=== PATIENT | female | born 1970 | race Two or more races ===

== ENCOUNTER 2025-08-09 14:12 | Emergency (ER) | payer MEDICAID, SELFPAY ==
--- NOTE | 2025-08-09 | XR_ITS ---
Examination: MRI lumbar spine without contrast Date and time of exam: August 09, 2025, 1858 hours INDICATIONS: Patient fell today injury to the lower back, compression fracture L1 on CT examination today Technique: Multiple MRI axial and sagittal sections lumbar spine. Sagittal T2-weighted images, TR 3500, TE 118 T1 weighted transverse sections, TR 688 T8.5, T2-weighted sagittal sections T1 weighted sagittal sections TR 621, TE 30 T2 axial sections, TR 4, 190, TE 84. Findings: Acute compression fracture L1 vertebral body, depression inferior endplate, burst type fracture Retropulsion of the posterior inferior margin of this vertebral body 6 mm however no impingement upon the conus medullaris Diffuse lumbar disc desiccation No spondylolisthesis L5-S1 5 mm central lumbar disc bulge which extends to the right intervertebral foramen with mild right L5 ganglionic compression, sagittal image 4 L4-L5 2 mm central lumbar disc bulge L3-L4 no disc protrusion L2-L3 no disc protrusion L1-L2 no disc protrusion IMPRESSION: Acute compression fracture L1 vertebral body, depression superior endplate, reduction in height 50% Retropulsion of the posterior inferior margin of this vertebral body 6 mm no impingement upon the conus medullaris L5-S1 6 mm central lumbar disc bulge extending to the right intervertebral foramen with mild right L5 ganglionic compression
[2025-08-09 14:20] VITALS: BP 164/97; PULSE 80; RESP 21; TEMP 36.4; O2SAT 95
--- NOTE | 2025-08-09 14:22 | XR_ITS ---
EXAMINATION: Right femur 2 views TECHNIQUE: AP lateral right femur 2 views Date and time: August 09, 2025, 1449 hours INDICATIONS: Patient fell in the shower today with injury to the femur, femur pain. FINDINGS: No hip or femoral shaft fracture noted No hip dislocation IMPRESSION: No acute fracture
--- NOTE | 2025-08-09 14:22 | XR_ITS ---
Examination: CT lumbar spine, without contrast. 2-D sagittal reconstructions. 2-D coronal reconstructions. 3-D reconstructions. Date and time of exam: August 09, 2025, 1535 hours INDICATIONS: Patient fell today with injury of the lower back, lower back pain CTDI: vol (mGy): 41 DLP: (mGycm): 1123 Technique: Multiple 1.25 mm axial sections of the lumbar spine without intravenous contrast have been obtained. 2-D sagittal and coronal reconstructions have been obtained. 3-D reconstructions have been obtained. Low dose protocols were performed. One or more of the following dose reduction techniques were used; automated exposure control, adjustment of the mA and/or KV according to patient size, use of iterative reconstruction technique. Findings: Acute compression fracture L1 vertebral body, depression inferior endplate, retropulsion of the posterior inferior margin of this vertebral body 6 mm Pedicles and laminae are intact at this site Remaining vertebral bodies intact L5-S1 3 mm central lumbar disc bulge IMPRESSION: Acute burst compression fracture at L1 vertebral body, depression superior endplate, reduction in height 50% Retropulsion of the posterior inferior margin of this vertebral body 6 mm which may impinge upon the conus medullaris, consider MRI lumbar spine without contrast follow-up
--- NOTE | 2025-08-09 14:22 | XR_ITS ---
Examination: CT thoracic spine, without contrast. 2-D sagittal reconstructions. 2-D coronal reconstructions. 3-D reconstructions. Date and time of exam: August 09, 2025, 1535 hours INDICATIONS: Patient fell today with injury to the upper back, upper back pain CTDI: vol (mGy): 43.1 DLP: (mGycm): 1438 Technique: Multiple 1.25 mm axial sections of the thoracic spine without intravenous contrast have been obtained. 2-D sagittal and coronal reconstructions have been obtained. 3-D reconstructions have been obtained. Low dose protocols were performed. One or more of the following dose reduction techniques were used; automated exposure control, adjustment of the mA and/or KV according to patient size, use of iterative reconstruction technique. Findings: Axial image 136 demonstrates 15 mm pulmonary nodule right lower lobe with spiculated margins Please see the CT lumbar spine report No acute thoracic vertebral body compression fracture Thoracic pedicles laminae transverse and posterior spinous processes intact IMPRESSION: No acute thoracic fracture 15 mm pulmonary nodule right lower lobe spiculated margins, consider CT chest without contrast follow-up
--- NOTE | 2025-08-09 14:22 | XR_ITS ---
Examination: CT pelvis without intravenous contrast. 2-D sagittal and coronal reconstructions. Date and time of exam: August 09, 2025, 1331 hours INDICATIONS: Patient slipped and fell today with injury to both hips, bilateral hip pain CTDI: vol (mGy) : 12.2 DLP: (mGycm) : 109 Technique: Multiple 3 mm axial sections of the pelvis have been obtained with the 64 slice high resolution scanner. 2-D sagittal and coronal reconstructions. Low dose protocols were performed. One or more of the following dose reduction techniques were used; automated exposure control, adjustment of the mA and/or KV according to patient size, use of iterative reconstruction technique. Findings: No pelvic mass No pelvic hematoma Contracted urinary bladder which is intact Sacral segments, intact Acetabular regions intact Acute nondisplaced fractures right superior inferior pubic rami Hips intact no hip dislocations IMPRESSION: Acute nondisplaced fractures right superior and inferior pubic rami
--- NOTE | 2025-08-09 14:22 | XR_ITS ---
Examination: Shoulder, right, 3 views Technique: Shoulder AP internal rotation, AP external rotation, Y view shoulder, 3 views Exam date and time : 0 raiding up to 025, 1449 hours INDICATIONS: Patient fell today with injury to the shoulder, shoulder pain. FINDINGS: Acute fractures humeral neck and head, mild offset of the greater tuberosity fracture fragment as well as a smaller adjacent fragment No shoulder dislocation IMPRESSION: Acute fractures humeral head and neck
[2025-08-09] MEDS: HYDROcodone/APAP 5/325 TABLET 1 TAB PO (14:34)
--- NOTE | 2025-08-09 15:37 | PD.EDRME ---
Rapid Medical Screening Exam RME Arrival date/time: 08/09/25 14:12 55-year-old female presents to the emergency brought today send that she had a fall in the shower today patient reports right shoulder pain lower back pain and pelvic pain as well as right leg pain Chief Complaint: Fall Time Seen by Provider: 08/09/25 16:01 Vital signs: Vital Signs Temperature 97.5 F 08/09/25 14:20 Pulse Rate 80 08/09/25 14:20 Respiratory Rate 21 H 08/09/25 14:20 Blood Pressure 164/97 H 08/09/25 14:20 Pulse Oximetry (%) 95 08/09/25 14:20 Oxygen Delivery Method Room Air 08/09/25 14:20 Vital signs reviewed by provider: Yes Exam: Clinically patient appears to be in significant pain Clinical Impression: Imaging ordered pain medication ordered
--- NOTE | 2025-08-09 16:01 | PD.EDFALL ---
ED Fall Injury RME/HPI General Chief Complaint: Fall Stated Complaint: FALL/RIGHT SHOULDER AND BACK PAIN Time Seen by Provider: 08/09/25 16:01 Arrival date/time: 08/09/25 14:12 RME / HPI RME / HPI Narrative: 08/09/25 14:12 55-year-old female presents to the emergency brought today send that she had a fall in the shower today patient reports right shoulder pain lower back pain and pelvic pain as well as right leg pain Exam: Clinically patient appears to be in significant pain Impression: Imaging ordered pain medication ordered Related Data Previous Rx's ?Medication ?Instructions ?Recorded naproxen 500 mg tablet 500 mg PO BID PRN pain #30 tabs 03/13/23 Allergies Allergy/AdvReac Type Severity Reaction Status Date / Time NKA* Allergy Uncoded 08/09/25 14:15 Course Orders Category Date Time Status CT lumbar spine wo con Stat Exams 08/09/25 14:[address] pelvis wo con Stat Exams 08/09/25 14:[address] thoracic spine wo con Stat Exams 08/09/25 14:22 Taken XR femur RT 2V Stat Exams 08/09/25 14:22 Completed XR shoulder RT min 2V Stat Exams 08/09/25 14:22 Completed HYDROcodone*/APAP 5/325 [[place] 5/325] Med 08/09/25 14:22 Discontinued 1 tab PO X1 ONE Vital Signs Vital signs: Vital Signs Temperature 97.5 F 08/09/25 14:20 Pulse Rate 80 08/09/25 14:20 Respiratory Rate 21 H 08/09/25 14:20 Blood Pressure 164/97 H 08/09/25 14:20 Pulse Oximetry (%) 95 08/09/25 14:20 Oxygen Delivery Method Room Air 08/09/25 14:20 Fall Medications / Prescriptions Medication administrations:: Medication Administration History Discontinued Medications Hydrocodone Bitart/Acetaminophen (Hydrocodone/Apap 5/325 Tablet) 1 tab PO X1 ONE Stop: 08/09/25 14:23 Last Admin: 08/09/25 14:34 Dose: 1 tab Documented By: OA Discharge Plan Prescriptions/Referrals Prescriptions/Med Rec: No Action naproxen 500 mg tablet 500 mg PO BID PRN (Reason: pain) Qty: 30 0RF Patient/Caregiver Discharge Instructions Print Language: Korean
--- NOTE | 2025-08-09 17:33 | PC.NURSE ---
REQUEST BED FOR PT, DUE TO PAIN AND AMOUNT OF FRACTURES, PT SITTING IN WHEEL CHAIR
--- NOTE | 2025-08-09 17:35 | EDNOTE_ITS ---
ED Fall Injury RME/HPI General Chief Complaint: Fall Stated Complaint: FALL/RIGHT SHOULDER AND BACK PAIN Time Seen by Provider: 08/09/25 16:01 Arrival date/time: 08/09/25 14:12 RME / HPI RME / HPI Narrative: 08/09/25 14:12 55-year-old female presents to the emergency brought today send that she had a fall in the shower today patient reports right shoulder pain lower back pain and pelvic pain as well as right leg pain DR. BONILLA MAIN ED EVALUATION 55 year old female with history of presents to the ED for evaluation after a ground level mechanical fall that occurred today at ~ 1PM. Patient states she was getting into the shower when she slipped and fell, landing on her right side. Immediately after fall reported pain to her right shoulder, right hip, and right leg. Patient states while waiting in the ED lobby, she developed a numbness sensation to bilateral lower extremities and had urinary incontinence. No head injury or LOC reported. Exam: Clinically patient appears to be in significant pain Impression: Imaging ordered pain medication ordered Related Data Previous Rx's ?Medication ?Instructions ?Recorded naproxen 500 mg tablet 500 mg PO BID PRN pain #30 t abs 03/13/23 Allergies Allergy/AdvReac Type Severity Reaction Status Date / Time NKA* Allergy Uncoded 08/09/25 14:15 Review of Systems Review of Systems Systems Reviewed: All systems reviewed, normal except as documented Past Medical History Social History SMOKING STATUS: Never smoker ED Exam Narrative Physical exam: Constitutional: Awake, alert, nontoxic, appears in pain. HEENT: Normocephalic, atraumatic, extraocular movements intact, PERRL Neck: Supple CV: Regular rate and rhythm, no murmurs/rubs/gallops Lungs: Clear to auscultation BL, no respiratory distress. Abd: Soft, NT, ND, no HSM noted to palpation Extremities: RUE distal mobility, sensation,and pulses are intact. Pain to palpation of the right shoulder with swelling noted to same w decreased ROM R shoulder. Pain to R hip / pelvis region. Neuro: AAOx3, CN 2-12 GIBL, decreased sensation blle (off from baseline) - able to mobilize blle though exam limited d/t pain to rle w pelvic fractures Skin: Warm, dry, intact Course Course Course Narrative: 1738h: I evaluated the patient in old triage. During this time she reported developing bilateral leg numbness and had an episode of urinary incontinence while waiting in the ED lobby after initial triage. The charge nurse was made aware and patient moved to ED room 14. 1748h: Transfer nurse made aware of request to transfer d/t CT findings and exam abnormalities as concern for neurologic deficit with L1 burst fracture and retropulsion. Has been given dose of dexamethasone 10mg IV and dilaudid for pain. 1800h: Care signed out to Dr. Wadsworth, pending transfer acceptance. [facility], [facility], and [facility] are being called. 1845h: [facility] called back and had discussed case with them. They have excepted patient for transport which will be arranged. They recommend maintaining patient in a flat position, placing c-collar, and avoiding hypotension. Quality Measures none Orders Category Date Time Status MRI Screening NOW Care 08/09/25 17:33 Active Referral - Lead Slot Technician Stat Cons 08/09/25 17:[address] cervical spine wo con Stat Exams 08/09/25 18:[address] head/brain wo con Stat Exams 08/09/25 18:[address] lumbar spine wo con Stat Exams 08/09/25 14:[address] pelvis wo con Stat Exams 08/09/25 14:[address] thoracic spine wo con Stat Exams 08/09/25 14:22 Completed MR lumbar spine wo con Stat Exams 08/09/25 Ordered XR femur RT 2V Stat Exams 08/09/25 14:22 Completed XR shoulder RT min 2V Stat Exams 08/09/25 14:22 Completed HYDROcodone*/APAP 5/325 [[place] 5/325] Med 08/09/25 14:22 Discontinued 1 tab PO X1 ONE HYDROmorphone INJ [Dilaudid Inj] Med 08/09/25 17:46 Discontinued 1 mg IVP X1 ONE dexAMETHasone INJ [Decadron Inj] Med 08/09/25 17:48 Discontinued 10 mg IVP X1 ONE Vital Signs Vital signs: Vital Signs Temperature 97.5 F 08/09/25 14:20 Pulse Rate 80 08/09/25 14:20 Respiratory Rate 21 H 08/09/25 14:20 Blood Pressure 164/97 H 08/09/25 14:20 Pulse Oximetry (%) 95 08/09/25 14:20 Oxygen Delivery Method Room Air 08/09/25 14:20 Pulse ox is 95% on room air which is adequate. Fall MDM Narrative MDM Narrative:: Sydnee Hyman am scribing for and in the presence of Dr. Bonilla. Patient data External records reviewed:: [facility] previous records Clinical information provided by:: patient Social determinants that could affect healthcare access:: none Patient has the following chronic illnesses:: None reported How is presenting disease/condition affected by chronic disease/condition?: no chronic disease Evaluation data The following diagnostics were reviewed and interpreted by me:: lab results and radiology exam(s) Lab and/or radiology exams considered but not ordered:: None Interpretation Summary: Femur XR right report shows no acute fracture. Lumbar spine CT wo con report shows Acute burst compression fracture at L1 vertebral body, depression superior endplate, reduction in height 50%. Retropulsion of the posterior inferior margin of this vertebral body 6 mm which may impinge upon the conus medullaris Pelvis CT wo con report shows Acute nondisplaced fractures right superior and inferior pubic rami Shoulder XR right shows Acute fractures humeral head and neck Thoracic spine CT wo con report shows No acute thoracic fracture Medications / Prescriptions Medications or Prescriptions considered but not ordered:: None Medication administrations:: Medication Administration History Discontinued Medications Hydrocodone Bitart/Acetaminophen (Hydrocodone/Apap 5/325 Tablet) 1 tab PO X1 ONE Stop: 08/09/25 14:23 Last Admin: 08/09/25 14:34 Dose: 1 tab Documented By: OA Dexamethasone Sodium Phosphate (Dexamethasone Sod Phos Inj 10 Mg/Ml Vial) 10 mg IVP X1 ONE Stop: 08/09/25 17:49 Last Admin: 08/09/25 18:25 Dose: 10 mg Documented By: AA Hydromorphone HCl (Hydromorphone Inj 2 Mg/Ml Vial) 1 mg IVP X1 ONE Stop: 08/09/25 17:47 Last Admin: 08/09/25 18:25 Dose: 1 mg Documented By: AA See above Consultations Consultation(s) initiated? (list below): Yes Consultation #1 (Physician, Specialty, Details): See above Diagnosis Fall Differential Diagnosis: syncope, dislocation of shoulder region, fracture of wrist and compression fracture Most likely diagnosis given after review of the tests above:: L1 burst compression fracture with retropulsion and query cord impingement, right proximal humerus fracture, superior and inferior right pubic ramus fracture Admission Indicated Admission indicated?: not indicated Explain why admission is indicated or not indicated:: Txfer for neurosurgery and ortho Admission Request Was there a request for admission?: No Disposition Plan Disposition Plan: other (specify) (Signed out pending transfer) Critical Care Time Critical Care Time Critical Care Time: Yes Total Critical Care Time (min.): 32 Attestation: The high probability of a clinically significant, sudden or life threatening deterioration required my full and direct attention, intervention and personal management. The aggregate critical care time was [32] minutes. This time is in addition to time spent performing reported procedures but includes the f ollowing: [x] Data Review and interpretation [x] Patient assessment and monitoring of vital signs [x] Documentation [x] Medication orders and management Discharge Plan Plan Patient Disposition: [facility] Facility Pt Being Transferred to: [facility] Service Needed for Transfer: Neurosurgery Patient condition on transfer: Stable Prescriptions/Referrals Prescriptions/Med Rec: No Action naproxen 500 mg tablet 500 mg PO BID PRN (Reason: pain) Qty: 30 0RF Referrals: Ozzy Gusman MD [Primary Care Provider, Family Practice] - In 1 week Problem List Clinical Impression: Closed fracture of proximal end of right humerus, Closed fracture of pubic ramus, Traumatic burst fracture of lumbar vertebra, Fall Patient/Caregiver Discharge Instructions Print Language: Turkish Stand Alone Forms: [facility]ole Award Info., Patient Portal Info Letter
--- NOTE | 2025-08-09 17:52 | PC.CC ---
Addendum entered by Kelvin Oquendo RN 08/09/25 19:31: Juan to arrange transport when patient returns from MRI Addendum entered by Kelvin Oquendo RN 08/09/25 19:24: Dr Omalley spoke to Dr. Jose at [facility] - pts condition is too complex. Dr. Omalley spoke to [place] / [facility] TC. Dr. Gregg accepted pt at 1851. AT 1915: Pt not in room. pt in MRI. transfer packet CD created and given to Juan. Ed track updated with all information. ED TO ED Call report [phone] Original Note: received call from Dr. Omalley for transfer for neurosurgery for acute burst L1. Clinicals sent to [facility] and [facility]. CD created
--- NOTE | 2025-08-09 18:10 | XR_ITS ---
Examination: CT brain head without contrast. 2-D sagittal coronal reconstructions Date and time of exam: August 09, 2025, 1846 hours, comparison June 13, 2006 CTDI: vol (mGy): 48.5 DLP: (mGycm): 923 Technique: Multiple CT axial sections of the brain have been obtained, 5 mm slice thickness. Contrast has not been administered. 2-D sagittal, coronal reconstructions have been obtained Low dose protocols were performed. One or more of the following dose reduction techniques were used; automated exposure control, adjustment of the mA and/or KV according to patient size, use of iterative reconstruction technique. Findings: No significant ventricular enlargement. Intra-axial or extra-axial hemorrhage density is not seen. No mass effect or midline shift Basal cisterns are not remarkable. Fourth ventricle is midline. Cranial vault intact. Impression: Negative for acute hemorrhage, mass effect or midline shift
--- NOTE | 2025-08-09 18:10 | XR_ITS ---
Examination: CT cervical spine without contrast 2-D sagittal reconstructions 2-D coronal reconstructions 3-D reconstructions. Exam date and time: August 09, 2025, 1845 hours INDICATION: Ground-level fall today with injury to the neck, neck pain CTDI:vol (mGy) 16.9 DLP: (mGycm) 356 Technique: Multiple 2 mm axial sections of the cervical spine have been obtained. The coronal and sagittal reconstructions have been obtained. 3-D reconstructions have been obtained. Low dose protocols were performed. One or more of the following dose reduction techniques were used; automated exposure control, adjustment of the mA and/or KV according to patient size, use of iterative reconstruction technique. Findings: Axial sections demonstrate intact base of the skull. C1 exhibit satisfactory relationship to the odontoid. No acute cervical vertebral body fracture seen. Alignment posterior spinous processes satisfactory. Impression: No acute cervical fracture.
[2025-08-09 18:24] VITALS: BP 162/102; PULSE 70; RESP 22; TEMP 36.4; O2SAT 100
[2025-08-09] MEDS: HYDROmorphone INJ 2 MG/ML VIAL 1 MG IVP (18:25)
--- NOTE | 2025-08-09 19:21 | PD.EDADDENDU ---
Emergency Room Addendum <Sarah Phillips - Last Filed: 08/09/25 21:25> Addendum Narrative: 1800: Care assumed from Dr. Omalley (emergency physician). Past medical, surgical, social and family history reviewed. Vitals and home medications reviewed. Results and treatment plan discussed. I will assume the care of the patient at this time and will follow the patient, pending transfer to [facility]. The following addendum documentation note is intended to reflect any pending information, findings, or radiology results not included in the patient?s initial chart by the previous shift scribe. Patient is a 55-year-old female left in the emergency department after having a fall in the shower resulting in multiple injuries to her body. Head CT and cervical spine unremarkable. Patient was placed in a c-collar because she endorsed weakness in her lower extremities as well as urinary incontinence. Thoracic spine CT identified [address] of the lumbar spine showed an acute compression fracture of the L1 vertebral body, depression of the inferior endplate, retropulsion of the posterior inferior margin of the vertebral body approximately 6 mm, pedicles and lamina are intact. There is also an L5-S1 3 mm central lumbar disc bulge. There is 50% reduction in the body height of L1. MRI of the lumbar spine shows an acute compression fracture of the L1 vertebral body depression of the superior endplate reduction in high 50%, retropulsion of the posterior inferior margin of the vertebral body 6 mm no impingement upon the conus medullaris. Patient also with an L5-S1 6 mm central lumbar disc bulge extending to the right intervertebral foramen with mild right L5 ganglionic compression. X-ray of the right femur unremarkable. Pelvis CT with acute nondisplaced fractures of the right superior and inferior pubic rami. X-ray of the shoulder with acute fractures of the humeral neck and head, mild offset of the greater tuberosity. Patient is in a sling. Patient was accepted for transfer to [facility] neurosurgery. On my assessment patient hemodynamically stable not in distress. Patient transported to [facility] by EMS. <Minna Wadsworth MD - Last Filed: 09/01/25 10:10> Addendum Narrative: 1800: Care assumed from Dr. Omalley (emergency physician). Past medical, surgical, social and family history reviewed. Vitals and home medications reviewed. Results and treatment plan discussed. I will assume the care of the patient at this time and will follow the patient, pending transfer to [facility]. The following addendum documentation note is intended to reflect any pending information, findings, or radiology results not included in the patient?s initial chart by the previous shift scribe. Patient is a 55-year-old female left in the emergency department after having a fall in the shower resulting in multiple injuries to her body. Head CT and cervical spine unremarkable. Patient was placed in a c-collar because she endorsed weakness in her lower extremities as well as urinary incontinence. Thoracic spine CT identified [address] of the lumbar spine showed an acute compression fracture of the L1 vertebral body, depression of the inferior endplate, retropulsion of the posterior inferior margin of the vertebral body approximately 6 mm, pedicles and lamina are intact. There is also an L5-S1 3 mm central lumbar disc bulge. There is 50% reduction in the body height of L1. MRI of the lumbar spine shows an acute compression fracture of the L1 vertebral body depression of the superior endplate reduction in high 50%, retropulsion of the posterior inferior margin of the vertebral body 6 mm no impingement upon the conus medullaris. Patient also with an L5-S1 6 mm central lumbar disc bulge extending to the right intervertebral foramen with mild right L5 ganglionic compression. X-ray of the right femur unremarkable. Pelvis CT with acute nondisplaced fractures of the right superior and inferior pubic rami. X-ray of the shoulder with acute fractures of the humeral neck and head, mild offset of the greater tuberosity. Patient is in a sling. Patient was accepted for transfer to [facility] neurosurgery. On my assessment patient hemodynamically stable not in distress. Patient transported to [facility] by EMS.
[2025-08-09 19:36] VITALS: BP 136/91; PULSE 77; RESP 20; TEMP 36.9; O2SAT 96
[2025-08-09 19:38] VITALS: BMI 35.5
--- NOTE | 2025-08-09 19:54 | PC.NURSE ---
Patient is awake and alert, is at the bedside. Patient speaks Maltese only. Patient had MRI done and several CT scans that showed fracture to the humerus head and bulged disc at L5 to S1, nodule 16 mm to the lung. Patient will be transferred to [facility], awaiting on transportation. Patient and agreeable to POC and to the transferred out plan. Patient care assumed at this time.
--- NOTE | 2025-08-09 20:07 | PC.NURSE ---
Brooke report given to Elodia TURPIN at [facility] at 20:05. Awaiting on transportation, no ETA at the moment.
[2025-08-09] MEDS: HYDROmorphone INJ 2 MG/ML VIAL 0.5 MG IVP (20:41)
== END 2025-08-09 20:49 | disposition short-term general hospital (02) ==
PROVIDERS: Emergency Provider Emergency Medicine; PCP Family Medicine
DX: S32.011A Stable burst fracture of first lumbar vertebra, initial encounter for closed fracture (principal); S32.591A Other specified fracture of right pubis, initial encounter for closed fracture; S42.291A Other displaced fracture of upper end of right humerus, initial encounter for closed fracture; S42.211A Unspecified displaced fracture of surgical neck of right humerus, initial encounter for closed fracture; R91.1 Solitary pulmonary nodule; S19.9XXA Unspecified injury of neck, initial encounter; S29.9XXA Unspecified injury of thorax, initial encounter; W18.2XXA Fall in (into) shower or empty bathtub, initial encounter; Y93.E1 Activity, personal bathing and showering; Z75.1 Person awaiting admission to adequate facility elsewhere
CPT/HCPCS: 70450; 72125; 72128; 72131; 72148; 72192; 73030; 73552; 96374; 96375; 96376; 99284; J1100; J1171; A9270